=== PATIENT | male | born 1985 | race Caucasian/White ===

== ENCOUNTER 2021-12-29 11:27 | Emergency (ER) | payer OTHER ==
[~2021-12-29] VITALS: Ht 182.9 cm; Wt 86.4 kg
[2021-12-29 11:35] VITALS: BP 133/63; TEMP 97.7
[2021-12-29 13:04] VITALS: PULSE 73
== END 2021-12-29 13:04 | disposition home or self-care (01) ==
LOC: COL.ER 11:27
DX: R04.0 Epistaxis (principal); F17.210 Nicotine dependence, cigarettes, uncomplicated